=== PATIENT | female | born 1960 | race African-American/Black ===

== ENCOUNTER 2021-04-30 10:29 | Emergency (ER) | payer BC ==
[~2021-04-30] VITALS: Ht 167.6 cm; Wt 94.8 kg
[~2021-04-30 10:29] MED LIST: ALDACTONE25 MG PO; DOXYCYCLINE 10100 M1 PO; IBUPROFEN 800800 MG PO
[2021-04-30 13:03] VITALS: BP 165/79
== END 2021-04-30 13:03 | disposition home or self-care (01) ==
LOC: ER 10:29
DX: M17.11 Unilateral primary osteoarthritis, right knee (principal); M25.561 Pain in right knee; Z79.899 Other long term (current) drug therapy